=== PATIENT | male | born 1995 | race Caucasian/White ===

== ENCOUNTER 2020-03-05 10:28 | Emergency (ER) | payer MEDICAID ==
[~2020-03-05] VITALS: Ht 180.3 cm; Wt 148.8 kg
[2020-03-05 10:36] VITALS: Ht 180.3 cm; Wt 148.8 kg
[2020-03-05 14:21] VITALS: BP 135/82
== END 2020-03-05 14:21 | disposition home or self-care (01) ==
LOC: ED 10:28
DX: S51.812A Laceration without foreign body of left forearm, initial encounter (principal); W01.0XXA Fall on same level from slipping, tripping and stumbling without subsequent striking against object, initial encounter; Y93.89 Activity, other specified; Y92.89 Other specified places as the place of occurrence of the external cause; Y99.8 Other external cause status
CPT/HCPCS: 90715; J2001; Q0092; Q0162